=== PATIENT | female | born 1995 | race African-American/Black ===

== ENCOUNTER 2017-07-05 20:17 | Emergency (ER) | payer SELFPAY ==
--- NOTE | 2017-07-05 20:28 | EDM.PDOC ---
ED HPI GENERAL MEDICAL PROBLEM - General Chief Complaint: ZONE MANAGER Problem Stated Complaint: /BLEEDING Time Seen by Provider: 07/05/17 20:21 - History of Present Illness INITIAL COMMENTS - FREE TEXT/NARRATIVE: HISTORY AND PHYSICAL: History of present illness: Patient's 22-year-old black female is approximately 8 weeks and presents with vaginal bleeding she had some mild abdominal cramping she states she passed that she feels was a clot earlier she denies chest pain shortness of breath or other concern Review of systems: As per history of present illness and below otherwise all systems reviewed and negative. Past medical history: As per history of present illness and as reviewed below otherwise noncontributory. Surgical history: As per history of present illness and as reviewed below otherwise noncontributory. Social history: No reported history of drug or alcohol abuse. Family history: As per history of present illness and as reviewed below otherwise noncontributory. Physical exam: HEENT: Atraumatic, normocephalic, pupils reactive, negative for conjunctival pallor or scleral icterus, mucous membranes moist, throat clear, neck supple, nontender, trachea midline. Lungs: Clear to auscultation, breath sounds equal bilaterally, chest nontender. Heart: S1S2, regular, negative for clicks, rubs, or JVD. Abdomen: Soft, nondistended, nontender. Negative for masses or hepatosplenomegaly. Negative for costovertebral tenderness. Pelvis: Stable nontender. Genitourinary: Deferred. Rectal: Deferred. Extremities: Atraumatic, negative for cords or calf pain. Neurovascular unremarkable. Neuro: Awake, alert, oriented. Cranial nerves II through XII unremarkable. Cerebellum unremarkable. Motor and sensory unremarkable throughout. Exam nonfocal. Diagnostics: Quantitative beta-hCG CBC pelvic ultrasound ABO Rh Therapeutics: None Impression: #1 first trimester #2 threatened Definitive disposition and diagnosis as appropriate pending reevaluation and review of above. - Related Data Allergies Allergy/AdvReac Type Severity Reaction Status Date / Time No Known Allergies Allergy Verified 07/05/17 20:30 Home Meds: Home Meds . [No Known Home Meds] 07/05/17 [History] ED ROS GENERAL - Review of Systems Review Of Systems: ROS reveals no pertinent complaints other than HPI. ED EXAM, GENERAL - Physical Exam Exam: See Below (See dictation) Course - Vital Signs Text/Narrative:: Patient's course in the emergency department has been unremarkable she remains hemodynamically stable and no significant vaginal bleeding or abdominal pain her quantitative beta was 593 her blood type was O+ H&H was stable pelvic ultrasound demonstrated nothing within her uterus or adnexa she did have some thickening of her endometrium noted I discussed with patient differential diagnosis including early IUP complete AB threatened AB and tubal ration understands all the above and will follow up for repeat quantitative beta and 48 hours and schedule appointment with ZONE MANAGER for follow-up she is to return as needed as discussed for pain bleeding or any other concerns. Last Recorded V/S: Last Vital Signs Temp 35.7 C 07/05/17 20:19 Pulse 106 H 07/05/17 20:19 Resp 19 07/05/17 20:19 BP 152/88 H 07/05/17 20:19 Pulse Ox 96 07/05/17 20:19 - Orders/Labs/Meds Orders: Active Orders 24 hr Category Date Time Status OB 1st Tri Sgl 1st Gest [US] Stat Exams 07/05/17 20:23 Taken Labs: Laboratory Tests 07/05/17 07/05/17 07/05/17 Range/Units 20:30 20:55 20:55 WBC 9.21 (4.0-11.0) K/uL RBC 4.11 L (4.30-5.90) M/uL Hgb 12.7 (12.0-16.0) g/dL Hct 36.8 (36.0-46.0) % MCV 89.5 (80.0-98.0) fL MCH 30.9 (27.0-32.0) pg MCHC 34.5 (31.0-37.0) g/dL RDW Std Deviation 42.7 (28.0-62.0) fl RDW Coeff of Raz 13 (11.0-15.0) % Plt Count 265 (150-400) K/uL MPV 12.00 (7.40-12.00) fL Neut % (Auto) 51.8 (48.0-80.0) % Lymph % (Auto) 40.5 H (16.0-40.0) % Cavalier % (Auto) 6.5 (0.0-15.0) % Eos % (Auto) 0.9 (0.0-7.0) % Baso % (Auto) 0.3 (0.0-1.5) % Neut # (Auto) 4.8 (1.4-5.7) K/uL Lymph # (Auto) 3.7 H (0.6-2.4) K/uL Cavalier # (Auto) 0.6 (0.0-0.8) K/uL Eos # (Auto) 0.1 (0.0-0.7) K/uL Baso # (Auto) 0.0 (0.0-0.1) K/uL Nucleated RBC % 0.0 /100WBC Nucleated RBCs # 0 K/uL HCG, Quant mIU/mL Urine Color YELLOW Urine Appearance HAZY Urine pH 5.5 (5.0-8.0) Ur Specific Evans >= 1.030 (1.001-1.035) Urine Protein TRACE (NEGATIVE) mg/dL Urine Glucose (UA) NEGATIVE (NEGATIVE) mg/dL Urine Ketones NEGATIVE (NEGATIVE) mg/dL Urine Occult Blood LARGE H (NEGATIVE) Urine Nitrite NEGATIVE (NEGATIVE) Urine Bilirubin NEGATIVE (NEGATIVE) Urine Urobilinogen 0.2 (<2.0) EU/dL Ur Leukocyte Esterase TRACE (NEGATIVE) Urine RBC 2-4 (0-2/HPF) Urine WBC 4-6 (0-5/HPF) Ur Epithelial Cells FEW (NONE-FEW) Urine Bacteria FEW (NEGATIVE) Blood Type O POSITIVE 07/05/17 Range/Units 20:55 WBC (4.0-11.0) K/uL RBC (4.30-5.90) M/uL Hgb (12.0-16.0) g/dL Hct (36.0-46.0) % MCV (80.0-98.0) fL MCH (27.0-32.0) pg MCHC (31.0-37.0) g/dL RDW Std Deviation (28.0-62.0) fl RDW Coeff of Raz (11.0-15.0) % Plt Count (150-400) K/uL MPV (7.40-12.00) fL Neut % (Auto) (48.0-80.0) % Lymph % (Auto) (16.0-40.0) % Cavalier % (Auto) (0.0-15.0) % Eos % (Auto) (0.0-7.0) % Baso % (Auto) (0.0-1.5) % Neut # (Auto) (1.4-5.7) K/uL Lymph # (Auto) (0.6-2.4) K/uL Cavalier # (Auto) (0.0-0.8) K/uL Eos # (Auto) (0.0-0.7) K/uL Baso # (Auto) (0.0-0.1) K/uL Nucleated RBC % /100WBC Nucleated RBCs # K/uL HCG, Quant 593.6 mIU/mL Urine Color Urine Appearance Urine pH (5.0-8.0) Ur Specific Evans (1.001-1.035) Urine Protein (NEGATIVE) mg/dL Urine Glucose (UA) (NEGATIVE) mg/dL Urine Ketones (NEGATIVE) mg/dL Urine Occult Blood (NEGATIVE) Urine Nitrite (NEGATIVE) Urine Bilirubin (NEGATIVE) Urine Urobilinogen (<2.0) EU/dL Ur Leukocyte Esterase (NEGATIVE) Urine RBC (0-2/HPF) Urine WBC (0-5/HPF) Ur Epithelial Cells (NONE-FEW) Urine Bacteria (NEGATIVE) Blood Type Departure - Departure Time of Disposition: 21:58 Disposition: Home, Self-Care 01 Condition: Good Clinical Impression: First trimester bleeding - Discharge Information Referrals: PCP,None [Primary Care Provider] - Forms: ED Department Discharge Additional Instructions: The following information is given to patients seen in the emergency department who are being discharged to home. This information is to outline your options for follow-up care. We provide all patients seen in our emergency department with a follow-up referral. The need for follow-up, as well as the timing and circumstances, are variable depending upon the specifics of your emergency department visit. If you don't have a primary care physician on staff, we will provide you with a referral. We always advise you to contact your personal physician following an emergency department visit to inform them of the circumstance of the visit and for follow-up with them and/or the need for any referrals to a consulting specialist. The emergency department will also refer you to a specialist when appropriate. This referral assures that you have the opportunity for followup care with a specialist. All of these measure are taken in an effort to provide you with optimal care, which includes your followup. Under all circumstances we always encourage you to contact your private physician who remains a resource for coordinating your care. When calling for followup care, please make the office aware that this follow-up is from your recent emergency room visit. If for any reason you are refused follow-up, please contact the [facility] emergency department at and asked to speak to the emergency department charge nurse. [facility] Primary [facility] - Women's Health [address] [place] [id number] Vaginal rest Follow-up repeat quantitative beta 48 hours call to schedule appointment above with Dr Trimble return as needed as discussed] - My Orders Last 24 Hours: My Active Orders 07/05/17 20:23 OB 1st Tri Sgl 1st Gest [US] Stat - Assessment/Plan Last 24 Hours: My Active Orders 07/05/17 20:23 OB 1st Tri Sgl 1st Gest [US] Stat
--- NOTE | 2017-07-06 09:59 | US ---
EXAM DATE: 07/05/17 PATIENT'S AGE: 22 Patient: ELLIOT SCANLON Facility: [place], [place] Site . Site : 1996 Study: US OB Pelvis 1st tri single gest [id number]/31/2018 10:06:06 PM Ordering Physician: Alana Shannon Final Report: INDICATION: Vaginal bleeding, 9 weeks by LMP, positive test in June per patient TECHNIQUE: Ultrasound OB pelvis transvaginal. Real-time medellin-scale imaging of the pelvis was performed. COMPARISON: None FINDINGS: Sonographic imaging demonstrates no intrauterine or extrauterine gestation. The cervix is closed. The myometrium appears normal. The ovaries are of normal size. There are no suspicious fluid collections noted in the cul-de-sac. IMPRESSION: No intrauterine or extrauterine gestation is identified. Dictated by Edith Finch MD @ Jul 05 2017 10:18PM (Electronic Signature) Report Signed by Proxy. MORENITA
== END 2017-07-05 22:10 | disposition home or self-care (01) ==
LOC: MW.ED 20:17
DX: O20.0 Threatened abortion (principal); Z3A.08 8 weeks gestation of pregnancy
CPT/HCPCS: 36415; 76801; 76801-26; 81001; 84702; 85025; 86900; 86901; 99284; 99284-25